=== PATIENT | female | born 2005 | race Caucasian/White ===

== ENCOUNTER 2024-03-12 22:57 | Emergency (ER) | payer MEDICAID, SELFPAY ==
[2024-03-12 23:02] VITALS: BP 143/71; PULSE 91; TEMP 36.9; O2SAT 97; BMI 37.6
--- NOTE | 2024-03-12 23:27 | ED_ITS ---
HPI - URI/Sore Throat General Chief Complaint: Upper Respiratory Infection Stated Complaint: SORE THROAT Time Seen by Provider: 03/12/24 23:18 Source: patient Limitations: no limitations History of Present Illness HPI Narrative: This 19-year-old female presents for evaluation of a sore throat, nasal congestion and dry cough for the past 3 days. She has not had a fever. She has been using [id number] cough and cold remedies such as Sudafed without significant improvement. She denies the possibility of . She denies any chest pain or shortness of breath. She has not had any body aches. She has not had any nausea vomiting or diarrhea. She denies any ear pain or headache. Related Data Allergies Allergy/AdvReac Type Severity Reaction Status Date / Time No Known Drug Allergies Allergy Verified 03/12/24 23:02 Review of Systems ROS Status of ROS 10 or more systems reviewed and unremark able except as noted in history and below Exam Narrative Exam Narrative: Vital signs and Nursing Notes reviewed: Patient is afebrile, normal pulse, blood pressure is mildly elevated 143/71, she is not hypoxic with pulse ox of 97% on room air General: Awake, alert, oriented, no acute distress, lying comfortably on the stretcher HEENT: Normocephalic atraumatic, mucous membranes are moist and pink, eyes are clear, normal conjunctiva, vision is grossly intact, posterior pharynx is normal in appearance without exudates, tonsillar erythema or other notable abnormality. Neck: Supple, no meningeal signs, no anterior or posterior cervical lymphadenopathy Chest: Lungs are clear to auscultation with good air entry, there is no wheezing rhonchi or rales appreciated no accessory muscle use, patient is speaking in complete sentences-no chest wall tenderness to palpation CVS: Regular rate and rhythm S1-S2, no murmurs rubs or gallops, pulses are brisk and equal bilaterally ABD: Soft, nondistended, nontender, no rebound guarding or rigidity, bowel sounds are normal, no pulsatile masses appreciated Extremities: Moving all extremities, no lower extremity tenderness or swelling noted, negative Homans' sign, pulses are brisk and equal bilaterally Skin: Normal in appearance without rash,pallor, petechiae or purpura Neuro: No focal deficits Constitutional Vital Signs, click to edit/add: Last Vital Signs Temp 98.5 F 03/12/24 23:02 Pulse 91 H 03/12/24 23:02 Resp 16 03/12/24 23:02 BP 143/71 H 03/12/24 23:02 Pulse Ox 97 03/12/24 23:02 O2 Del Method Room Air 03/12/24 23:02 Course Vital Signs Vital signs: Vital Signs Temperature 98.5 F 03/12/24 23:02 Pulse Rate 91 H 03/12/24 23:02 Respiratory Rate 16 03/12/24 23:02 Blood Pressure 143/71 H 03/12/24 23:02 Pulse Oximetry 97 03/12/24 23:02 Oxygen Delivery Method Room Air 03/12/24 23:02 Temperature 98.5 F 03/12/24 23:02 Pulse Rate 91 H 03/12/24 23:02 Respiratory Rate 16 03/12/24 23:02 Blood Pressure 143/71 H 03/12/24 23:02 Pulse Oximetry 97 03/12/24 23:02 Oxygen Delivery Method Room Air 03/12/24 23:02 MDM - URI/Sore Throat MDM Narrative Medical decision making narrative: This 19-year-old female presents for evaluation of a sore throat, nasal congestion and dry cough for the past 3 days. She has been using Sudafed. She has not had a fever. Her vital signs are normal. Her pharynx is normal in appearance without erythema, exudate, peritonsillar abscess or other notable abnormality. There is no anterior posterior cervical lymphadenopathy. Her lungs are clear. She denies the possibility of . She is medicated emergency department with a dose of ibuprofen. Strep testing is negative. The results of the strep test were discussed with her. She declines the need for any Tylenol or Motrin prescriptions to use at home. I suggested that she drink plenty of fluids, use Tylenol and Motrin as needed for pain or fever. She is in agreement with this plan. Lab Data Labs: Lab Results 03/12/24 Range/Units 23:30 Streptococcus Screen Negative Discharge Plan Discharge Stand Alone Forms: Portal Instructions Chief Complaint: Upper Respiratory Infection Clinical Impression: Upper respiratory infection, Pharyngitis Patient Disposition: Home, Self-Care Time of Disposition Decision: 23:48 Condition: Good Print Language: Israeli Instructions: Pharyngitis (ED), Upper Respiratory Infection (ED) Referrals: Physician,Non-Staff, MD [Primary Care Provider] - 1 week
[2024-03-12] MEDS: IBUPROFEN 600 MG TABLET PO (23:29)
[2024-03-12 23:40] LABS: Internal Control Within Normal Limits; Strep A Antigen Screen Negative
== END 2024-03-12 23:57 | disposition home or self-care (01) ==
PROVIDERS: Emergency Provider Emergency Medicine
DX: J02.9 Acute pharyngitis, unspecified (principal)
CPT/HCPCS: 36415; 87070; 87880; 99283